=== PATIENT | female | born 1970 | race Caucasian/White ===

== ENCOUNTER 2025-10-07 08:51 | Outpatient (AMB) | payer MEDICARE, MEDICAID, SELFPAY ==
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
[2025-10-07 09:09] VITALS: BP 148/67; PULSE 59; RESP 20; TEMP 36.3; O2SAT 97; BMI 28.7
--- OUTSIDE RECORDS SUMMARY | 2025-10-07 09:37 | XMS_ITS | Continuity of Care Document ---
Author Name [facility], Medical Address [address] [place] [address] Organization Unknown Address [address] [place] [address] Medications No known medications Problems No known problems
--- OUTSIDE RECORDS SUMMARY | 2025-10-07 09:37 | XMS_ITS | Patient Health Record ---
Author Organization [facility] Address [address] [place] [address] Care Team Providers Care Comfort Filler Name Role Phone RK HARPER Unavailable [phone] Allergies Allergen (clinical drug ingredient) Drug/Non Drug Allergy documented on EMR Reaction Allergy Type Onset Date Status Penicillin rash Drug Allergy Active Reason For Referral No Information Medications Medication SIG (Take, Route, Fr equency, Duration) Notes Start Date End Date Status traZODone HCl 100 MG Oral; Duration: 30 Days Active FLUoxetine HCl 20 MG Oral; Duration: 30 Days Active Social History Tobacco Use: Social History Observation Description Date Details (start date - stop date) Current Smoker NA - NA Tobacco Use/Smoking Question Answer Notes Are you a current smoker How often do you smoke cigarettes? every day How many cigarettes a day do you smoke? 5 or les s Alcohol Screen (Audit-C) Question Answer Notes Did you have a drink containing alcohol in the p ast year? No Points 0 Interpretation Negative Plan Of Treatment Pending Test Test Name Order Date MM Digital Screening Mammogram 3D 2023 Insurance Providers Payer Name Payer Address Payer Phone Subscriber Number Group Number Insured Name Patient Relationship to Insured Coverage Start Date Coverage End Date [facility] [address] [place] [id number] MALCOLM WARE Self - patient is the insured Medical (General) History Medical History History ICD Code Major depressive disorder, recurrent sev ere without psychotic features F33.2 Other bursitis of hip, right hip M70.71 Essential (primary) hypertension I10 Surgical History Surgery Date(Month/Year) Hospitalization History Reason Date(Month/Year) Mental health (depression) hospital stay s x 4 (last time 2019) Childbirth
--- OUTSIDE RECORDS SUMMARY | 2025-10-07 09:38 | XMS_ITS | Continuity of Care Document ---
Author Name Domingo Montalvo Address [address] [place] [id number] Organization Unknown Address [address] [place] [address] Medications No known medications Problems No known problems
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
--- OUTSIDE RECORDS SUMMARY | 2025-10-07 09:39 | XMS_ITS | Clinical Summary ---
Author Organization [facility] [address] [facility] Address [address] [place] [address] Phone Care Team Providers Care Human Resources Receptionist Name Role Phone Physician, No Pcp Primary Care Provider Unavaila ble Allergies Active Allergy Reactions Criticality Noted Date Comments Penicillins Anaphylaxis High 10/15/2019 Medications hydroCHLOROthia zide (MICROZIDE) 12.5 mg capsule Take 12.5 mg by mouth daily. Active meloxicam (MOBIC) 7.5 mg tablet Take 7.5 mg by mouth daily. Active nicotine polacrilex (NICORETTE) 2 mg gum Take 1 Each by mouth as needed. Active FLUoxetine (PROzac) 20 mg capsule Take 40 mg by mouth daily. Active bisacodyL (Dulcolax, bisacodyl,) 5 mg EC tablet Take 4 dulcolax tablets 2 hours before the procedure. 10/13/2019 Active acetaminophen (TYLENOL) 500 mg tablet Take 1 tablet (500 mg total) by mouth every 6 (six) hours if needed for mild pain for up to 12 doses. 12 tablet 06/24/2025 Active Active Problems Problem Noted Date Diagnosed Date Prediabetes 01/26/2020 Hypertension 01/26/2020 Anxiety 01/26/2020 Depression 01/26/2020 Insomnia 01/26/2020 Osteoarthritis 01/26/2020 Overview (09/13/2024): Thoracic & Lumbar Spine Chronic low back pain 01/26/2020 Vitamin D insufficiency 01/26/2020 Encounters Date Type Department Care Team Description 07/23/2025 1:55 PM EDT - 07/23/2025 5:00 PM EDT Emergency [facility] Emergency [address] [place] [address] Eddie Meredith MD Anxiety (Primary Dx); Poorly-controlled hypertension Discharge Disposition: Home or Self Care from Last 3 Months Immunizations Immunization Administration Dates Next Due Influenza trivalent, with pr eservative (Fluzone; Afluria) 6mo and older 10/08/2019 Pneumococcal conjugate 13 va lent (Prevnar 13, PCV13) 2mo and older 08/22/2016 Pneumococcal polysaccharide 23 valent (Pneumovax 23) 2yo and older 09/15/2018 Tdap Tetanus diptheria acell ular pertussis (Boostrix; Adacel) 7yo and older 06/15/2018 Surgical History Surgery Date Site/Laterality Comments SECTION PROCEDURE: HISTORICAL Medical History Medical History Date Comments Prediabetes 01/26/2020 DX:Prediabetes Hypertension 01/26/2020 DX:Hypertension Anxiety 01/26/2020 DX:Anxiety Depression 01/26/2020 DX:Depression Insomnia 01/26/2020 DX:Insomnia Osteoarthritis 01/26/2020 DX:Osteoarthriti s; COMMENT: Thoracic & Lumbar Spine Chronic low back pain 01/26/2020 DX:Chronic low back pain Vitamin D insufficiency 01/26/2020 DX:Vitam in D insufficiency Family History Medical History Relation Name Comments Stomach cancer Father Breast cancer Maternal Grandmother Diabetes Mother Hypertension Relation Name Status Comments Father Alive Maternal Grandmother Mother Alive Social History Tobacco Use Types Packs/Day Years Used Date Smoking Tobacco: Light Smoker Cigarettes Smokeless Tobacco: Never Alcohol Use Standard Drinks/Week Comments No 0 (1 standard drink = 0.6 oz pur e alcohol) Comments Unknown Sex and Gender Information Value Date Recorded Sex Assigned at Not on file Legal Sex Female 12:49 AM EST Gender Identity Not on file Sexual Orientation Not on file Obstetrics History Last Filed Vital Signs Vital Sign Reading Time Taken Comments Blood Pressure 180/91 07/23/2025 2:06 PM EDT Pulse 66 07/23/2025 2:06 PM EDT Temperature 36.6 C (97.9 F) 07/23/2025 2:06 PM EDT Respiratory Rate 18 07/23/2025 2:06 PM EDT Oxygen Saturation 96% 07/23/2025 2:06 PM EDT Inhaled Oxygen Concentration - - Weight - - Height 167.6 cm (5' 6 ) 06/24/2025 12:57 PM EDT Body Mass Index - - Plan of Treatment Health Maintenance Due Date Last Done Comments Colorectal Cancer Screening: Colonoscopy 1970 Hepatitis B Vaccines (1 of 3 - 19+ 3-dose series) 1987 Cervical Cancer Screening: Pap Smear 1989 Zoster Vaccines (1 of 2) 2018 Breast Cancer Screening 07/05/2021 07/05/2019, 06/29 Pneumococcal Vaccine: 50+ Years (3 of 3 - PCV20 or PCV21) 09/15/2023 09/15/2018, 08/22/2016 HIV Screening 09/14/2024 Hepatitis C Screening 09/14/2024 Medicare Annual Wellness Visit 09/14/2024 Social Influencers of Health Screening 09/14/2024 Cholesterol Screening (Lipid Panel) 10/08/2024 10/08/2019 Depression Screening 12/01/2024 COVID-19 Vaccine ( season) 2025 09/24/2022, 04/28/2021, 04/07/2021 Influenza Vaccine (#1) 2025 , 09/10/2023, 09/24/2022, Additional history exists Hypertension/CHF/CAD Annual BMP Blood Test 06/24/2026 06/24/2025 DTaP,Tdap,and Td Vaccines (2 - Td or Tdap) 06/15/2028 06/15/2018 RSV Immunization Adult Patients (1 - 1-dose 75+ series) 2043 HIB Vaccines Aged Out No longer eligi ble based on patient's age to complete this topic HPV Vaccines Aged Out No longer eligi ble based on patient's age to complete this topic Hepatitis A Vaccines Aged Out No long er eligible based on patient's age to complete this topic IPV Vaccines Aged Out No longer eligi ble based on patient's age to complete this topic MMR Vaccines Aged Out No longer eligi ble based on patient's age to complete this topic Meningococcal ACWY Vaccine Aged Out N o longer eligible based on patient's age to complete this topic Meningococcal B Vaccine Aged Out No l onger eligible based on patient's age to complete this topic RSV Immunization Patients Under 20 months Aged Out No longer eligible based on patient's age to complete this topic Varicella Vaccines Aged Out No longer eligible based on patient's age to complete this topic Procedures Procedure Name Priority Date/Time Associated Diagnosis Comments BASIC METABOLIC PANEL STAT 06/24/2025 11:58 AM EDT ANGELITA SCREENING DIGITAL Routine 07/05/2019 5:48 PM EDT Encounter for screening mammogram for malignant neoplasm of breast from Last 3 Months or Most Recently Relevant to Health Maintenance Results * (ABNORMAL) Basic metabolic panel (06/24/2025 11:58 AM EDT) Sodium 140 133 - 145 mmol/L LAB CHEMISTRY METHOD 06/24/2025 1:26 PM [facility] Potassium 4.0 3.5 - 5.5 mmol/L LAB CHEMISTRY METHOD 06/24/2025 1:26 PM [facility] Chloride 111(H) 96 - 110 mmol/L LAB CHEMISTRY METHOD 06/24/2025 1:26 PM [facility] CO2 25 21 - 32 mmol/L LAB CHEMISTRY METHOD 06/24/2025 1:26 PM [facility] Anion Gap 4 3 - 11 LAB CHEMISTRY METHOD 06/24/2025 1:26 PM [facility] Glucose 95 70 - 100 mg/dL LAB CHEMISTRY METHOD 06/24/2025 1:26 PM [facility] BUN 17 5 - 25 mg/dL LAB CHEMISTRY METHOD 06/24/2025 1:26 PM [facility] Creatinine 0.69 0.50 - 1.10 mg/dL LAB CHEMISTRY METHOD 06/24/2025 1:26 PM [facility] eGFR 102 >=60 mL/min/1. 73m2 LAB CHEMISTRY METHOD 06/24/2025 1:26 PM [facility] Comment:Calculation based on the Chronic Kidney Disease Epidemiology Collaboration (CKD-EPI) equation refit without adjustment for race. BUN/Creatinine Ratio 24.6 LAB CHEMISTRY METHOD 06/24/2025 1:26 PM EDT [facility] Calcium 9.4 8.5 - 10.5 mg/dL LAB CHEMISTRY METHOD 06/24/2025 1:26 PM EDT [facility] Blood Venous blood specimen / Unknown Venipuncture / Unknown 06/24/2025 11:58 AM EDT 06/24/2025 12:32 PM EDT us Orlando Huerta MD LAB BLOOD ORDERABLES Final Result [facility] [address] [place] [address], * ANGELITA SCREENING DIGITAL (07/05/2019 5:48 PM EDT) Anatomical Region Laterality Modality Mammography 07/05/2019 1:05 PM EDT Narrative 07/05/2019 5:[address] [facility] Diagnostic Imaging Department [address] [place] [address] Patient: KELIN WARE./Age/Sex: 1970 - 48 - F Unit#: [id number] Location/Status: SPDIMAM/REG CLI Mnemonic/Ordering Site: [facility] Ordering Physician: KEYON CARTER MD Angelita Screening Digital - 07/05/19 - 1327 History: Bilateral breast cancer screening. Technique: Digital mammography. Conventional CC and MLO projections with tomosynthesis MLO views and computer aided detection. Comparison made with previous mammograms from [facility] and outside mammography 06/29/2018 dating back to 01/03/2009. Findings: Breast tissue consists of a heterogenous combination of fatty and fibroglandular tissue, potentially obscuring small lesions, category c density. There are benign calcifications and stable tissue asymmetries bilaterally. No suspicious group of microcalcification, suspicious mass, concerning focal asymmetry, architectural distortion or concerning change in breast density affecting either breast. Impression: No evidence of malignancy. BIRADS category 2; benign findings, 3342F 76151, 35204 A negative mammogram in the face of a clinically suspicious abnormality does not exclude the possibility of malignancy nor alter the indications for biopsy. Note: Patient information entered into a reminder system with a target due date for the next mammogram; PQRI II 7093F Dictating Physician: LD BENNETT MD Electronically Signed by: LD BENNETT MD Dic Date/Time: 07/05/191746 Sign date/Time: 07/05/191747 Procedure Note Ld Bennett - 11/20/2022 [facility] Diagnostic Imaging Department [address] [place] [address] Patient: WAREKELIN CATES Dasha /Age/Sex: 1970 - 48 - F Unit#: [id number] [facility] Mn[facility]onic/Ordering Site: [facility] Ordering Physician: KEYON CARTER MD Angelita Screening Digital - 07/05/19 - 1327 History: Bilateral breast cancer screening. Technique: Digital mammography. Conventional CC and MLO projections with tomosynthesis MLO views and computer aided detection. [facility] [place] [facility] dating back to 01/03/2009. Findings: Breast tissue consists of a heterogenous combination of fattyand fibroglandular tissue, potentially obscuring small lesions, category cdensity. There are benign calcifications and stable tissue asymmetries bilaterally.No suspicious group of microcalcification, suspicious mass, concerningfocal asymmetry, architectural distortion or concerning change in breastdensity affecting either breast. Impression: No evidence of malignancy. BIRADS category 2; benign findings, 3342F 11228, 76591 A negative mammogram in the face of a clinically suspicious abnormalitydoes not exclude the possibility of malignancy nor alter the indications forbiopsy. Note: Patient information entered into a reminder system with a targetdue date for the next mammogram; PQRI II 7025F Dictating Physician: LD BENNETT MD Electronically Signed by: LD BENNETT MD Dic Date/Time: 07/05/191746 Sign date/Time: 07/05/191747 Keyon Carter MD IMG BI PROCEDURES Final Resul t from Last 3 Months or Most Recently Relevant to Health Maintenance Insurance [facility] MEDIC[facility] Member Subscriber Plan / Payer (Ef fective 2022-Present) Name:KELIN WARE Relation to Subscriber:Self Name:Kelin Ware Payer ID:[id number] Group ID:[id number] Type:Not on file Address: [place] [address] [address] [address] Care Teams Human Resources Receptionist Relationship Specialty Start Date End Date Physician, No Pcp PCP - General 06/24/25
--- OUTSIDE RECORDS SUMMARY | 2025-10-07 09:39 | XMS_ITS | Continuity of Care Document ---
Author Name [facility], Medical Address [address] [place] [address] Organization Unknown Address [address] [place] [address] Medications No known medications Problems No known problems
--- OUTSIDE RECORDS SUMMARY | 2025-10-07 09:39 | XMS_ITS | Encounter Summary ---
Author Organization [facility] Address [address] [place] [address] Encounters * CPT with Medical [facility] at [facility] on 2025-08-20 { reasonForRequest : Patient has an infection on the bottom of her Vagina, and has high blood pressure. , patientReports : Painful urination , denies&quot ;:[ Unable to void greater than 5 hours , Erection that will not go away after 2 hours , Fall or trauma that results in urinary incontinence in the setting of pain ,"Fall or injury that results in incontinence in the absence of pain , Lower back pain either unilateral or bilateral, unable to void, painful urination -hematuria ], chiefComplaints : High Blood Pressure, Headache, Urinary Symptoms , pmh : Hypertension, Depression , allergies : Penicillins , otherAllergies :null,& quot;painAssessment : , visitOutcome : , additionalComments : Member's son is calling saying she is complaining of a possible vaginal infection andfeels like her blood pressure is high. Recently in the hospital for the same reason. Increased redness and burning in her cyndy area. Member unsure if she has had a UTI before. Believes she has a yeast infection. Denies shortness of breath and chest pain. Currently does not take blood pressure medication. \n\n54 y.o female complains of High Blood Pressure, Headache\nI provided information on the mobile health provider response time and advised the patient and/or caregiver to monitor reported signs and symptoms. I discussed the warning signs of when to seek emergency care. Jacy Faria RN } Dispatched to the above address for a 54 y/f with Vaginal issues. Proper ppe was worn throughout the call. Upon arrival: Pt AOx4 in a fowlers position in the living room sofa. Pt greeted [facility] and gave a verbal report. Pt stated that about 2 weeks ago she was seen at [facility] for a cc of vaginal itchiness/constant burning sensation/white discharge. Pt stated that she thinks she was diagnosed with Yeast infection, and was sent home on antibiotics (cephalexin). Pt stated that she believes she threw the discharge paperwork away, but was sure that she was diagnosed with yeast infection (known hx). Pt stated that initially the symptoms got better, but after a couple of days everything got worse. [facility] noted that the antibiotics that pt was supposed to finish at least a week ago was mostly full (12 pills). Pt stated that she is forgetful at baseline and would forget to take antibiotics. To pt complaintspt added that she has a hx of hypertension, and for the past year has been off of her BP medications due to not having a PCP. AOx4 - Airway: Patent - Breathing: equal chest rise and fall - LS: clear - Skin: pink, warm, dry - Pupils: PERRL - CMSx4 - Lower extremity: no edema . ABD: soft, non tender, no discoloration - Back: (-) crepitus/ CVA tenderness. Pt denied to sob/headaches/chest pain/abd pain/blood in urine/difficulty urinating/fever/diarrhea/constipation/falls/. HEENT. skin in tact with no deformity. Pupils were equal and reactive to light bilaterally. Eyes tracking normally to six cardinal points of gaze. Nose and mouth were unobstructed. Trachea midline, jugular veins were nondistended in seated position. Face symmetrical with equal movement and sensation. Patient denied changes to vision or hearing and denied double vision. Tongue and uvula midline with palate raises symmetrically. No arm drift present, finger - nose test normal, no neglect noted. [facility]ave orders for Uranalysis/urine send out. done successfully. [facility] gave pt education on finishing Antibiotics, and gave a new prescription for yeast infection (pt stated that she will pickup med). Red flags given. Prior to [facility] leave pt family found discharge paperwork, and PT was diagnosed withUTI. Family stated that they will help the pt with her medications this time. MIH clear. All times approximate. IV_(FLUIDS_AND/OR_MEDICATION), MEDICATION_IM, ORAL_MEDICATION, EKG, POC_BLOODWORK, POC_FLU_STREP, GLUCOSE, COVID_TEST, ORTHOSTATIC_VITAL_SIGNS Written by Medical [facility] on 2025-08-20
--- OUTSIDE RECORDS SUMMARY | 2025-10-07 09:40 | XMS_ITS | Encounter Summary ---
Author Organization [facility] Address [address] [place] [address] Encounters * CPT with Domingo Montalvo at [facility] on 2025-06-20 { reasonForRequest : rash , patientReports : Rash , denies :[ Buck Flash, circumferential buck , Buck reported with black tissue to the area , Open skin area after a fall with uncontrolled bleeding , Abscess/ infection with streaking noted, presence of fever or without , History of cellulitis, isolated redness noted , Fever and chills noted in setting of wound , Bites -bugs, spider , Abscess ], chiefComplaints : Rash , pmh : Hypertension, Depression , allergies : Penicillins , otherAllergies&qu ot;:null, painAssessment : , visitOutcome : , additionalComments : 54 y.o female complains of Rash\nsymptoms started a week ago\nred raised rash under left breast denies any fever chills\ndenies any open or draining areas\nbelieves its from the heat an humidity\ndenies any kidney issues\nnot on any blood thinners \[facility]n\nI provided information on the mobile health provider response time and advised the patient and/or caregiver to monitor reported signs and symptoms. I discussed the warning signs of when to seek emergency care. } Pt chief complaint today of a rash that has been developing order her left breast. Pt state that the rash comes back once a year during the summer due to moisture that she collects under her skin fold. Pt state that this her however she does feel an 8/10 level of pain in the area. Pt also notes shehas been using. An anti-fungal cream as well as nystatin powder from 1 year prior to assist with the situation with very minimal positive effect. Pt also is having a headache without vision changes. Pt today would appreciate a general assessment of her condition as well as treatment if possible. Ptdenies any current cp, sob, NVD, dizziness or blurred vision. Nonnneural focal exam, upon arrival pt is noted to be able to ambulate at baseline without use of awalker or person. Afebrile, vitals noted hypertension.lungs present as clear bilaterally on auscultation. Benign abdominal assessment. No new or worsening lower extremity edema noted. Upon inspectionof the requested are a large 6 inch red rash is visualize. Not hot to touch but very tender. Area does not appear to have any discharge or open sores. Pt is noted to be CAOX4 with a GCS of 15 currently. [facility] Ranjit monaco consulted. Pt is informed of findings. Pt is sent a prescription for topical antifungal as well as steroid to her local pharmacy . Pt is informed to call as needed for assistance as well as to make an appointment with her pcp as needed. Pt is educated on red flag S&S and told to call emergency services ifany present. PO_MEDICATION Written by Domingo Montalvo on 2025-06-20
--- OUTSIDE RECORDS SUMMARY | 2025-10-07 09:40 | XMS_ITS | Encounter Summary ---
Author Organization On [facility] Of [facility] Address [address] [place] [address] Encounters * CPT with Medical [facility] at [employer] on 2025-07-25 Call transferred to CRU from Ghulam KINCAID. Mbr reports she went to the ER on Friday (07/23) for syncope and per mbr my blood pressure was 280 while in the ED. Mbr states she was given medication for her BP and d/c to home without script. Mbr does not have a current PCP, states she is trying to get in but wait times are 2-3 months. Mbr denies current s/sx including CP, SOB, dizziness, nu mbness/tingling, blurry vision. Mbr does not have a BP monitor or way to check BP. Mbr states she is currently at therapist appt. Mbr reported to MSR she is scared of passing out again. Mbr denies dizziness/lightheadedness at time of call. Mbr was offered instED for evaluation today. Mbr in agreement. Mbr request CCA assistance, states no one is helping her, requested BP monitor, BP medications, and pull-ups. Mbr was encouraged to call PCP offices and take soonest offered new patient appt, evenif months away. This underwriter solicitation director stressed the importance of mbr establishing care w/ a PCP. Mbr was advised msg would be sent to CP for follow-up. Mbr was advised an instED referral would be submitted and for new/worsening sx prior to visit, to call 911/go to the ER. { reasonForRequest : , patientReports : , denies&quot ;:[], chiefComplaints : High Blood Pressure , pmh : Hypertension, Depression , allergies : Penicillins , otherAllergies :null,&quo t;painAssessment : , visitOutcome : , additionalComments": HPI reviewed } GEN: Well appearing, in no distress or discomfort, alert and cooperative. HEENT: No abnormalities noted CV: RRR LUNGS: Clear equal Bilaterally ABD: Soft, NT/ND, no masses. : N/A SKIN: Warm, well perfused. No skin rashes or abnormal lesions reported. MSK: No deformities. EXT: No clubbing, cyanosis, edema NEURO: No focal deficits. C/o uncontrolled Blood pressure for <10 years, pt without PCP for <5. Pt notes symptoms that sent her to the ED to be evaluated including lightheadedness and systolic of 280. Pt was advised to secure a pcp for further detention care. Pt without complaints at time of visit, vitals unremarkablefor emergent intervention. C contacted and no further interventions required at time of visit. Pteducated to track BPs and secure a pcp appointment even if it is months away and was advised when to seek urgent/emergent care for new or worsening sxs. IV_(FLUIDS_AND/OR_MEDICATION), MEDICATION_IM, ORAL_MEDICATION, EKG, ORTHOSTATIC_VITAL_SIGNS Written by Medical inst[facility] on 2025-07-25
== END 2025-10-07 09:45 | disposition home or self-care (01) ==
LOC: HO.HMCFMS 08:52
PROVIDERS: PCP Student in an Organized Health Care Education/Training Program; Visit Provider Student in an Organized Health Care Education/Training Program
DX: R32 Unspecified urinary incontinence (principal); M79.604 Pain in right leg; G89.29 Other chronic pain; R26.81 Unsteadiness on feet; F32.A Depression, unspecified; F41.9 Anxiety disorder, unspecified; G47.00 Insomnia, unspecified

== ENCOUNTER 2025-10-07 08:51 | Outpatient (REF) | payer OTHER, SELFPAY ==
--- OUTSIDE RECORDS SUMMARY | 2025-10-07 11:20 | XMS_ITS | Data Portability ---
Author Organization [facility], [facility] Address [address] [place] [address] Care Team Providers Care Health Care Coordinator Name Role Phone HIM CCA OTHER Assessment Encounter Date Assessment Date Assessment LastModified by Organization Details LastModified Time 05/16/2024 05/16/2024 I provided real -time medical direction via phone for this encounter and was available for additional phone-based assistance as needed. I have reviewed and agree with the Assessment and Plan as documented by the Feed Manager. Patient given the opportunity to ask questions. Our service contacted for an assessment of: rash As per above, patient with rash under breasts that has been worsening over the course of a week. Is painful. Has ot put anything on it. Per event designer on the scene, VSS, see uploaded pictures. Impression: Candidal intertrigo Plan: Ketoconazole cream We discussed the diagnostic uncertainty of home visits and the risk associated with this. In this case, the patient and I felt this to be an acceptable and reasonable amount of risk given the benefit of avoiding an ED visit. We discussed the need to seek care urgently/emergentl y in the setting of any new or worsening serious symptoms, particularly fever chills lightheadedness altered mental status [facility] Not available 05/17/2024 07:19:35 06/20/2025 06/20/2025 Findings appear consistent with intertrigo. Low clinical suspicon for cellulitis or sepsis. Will initiate treatment with topical clotrimazole and betamethasone and hygiene precautions. Patient also noted to have hypertension with no reported history. Reports she does not currently see a PCP. Will send message to see if appropriate outpatient follow-up can be arranged. She otherwise appers safe and is satisfied with staying home. I provided real -time medical direction via phone for this encounter, and was available for additional phone based assistance as needed. I have reviewed and agree with the Assessment and Plan as documented by the Feed Manager. We discussed the diagnostic uncertainty of home visits and the risk associated with this. In this case the patient and I felt this to be an acceptable and reasonable amount of risk given the benefit of avoiding an ED visit. The patient given the opportunity to ask questions. Advised if develops CP/severe SOB/turning blue/uncontrolled n/v/d or black/bloody emesis or stool/ AMS/ syncope/ hi fever unresponsive to APAP to call 911- verbalized understanding of instruction [email or web address] Not available 06/20/2025 17:34:48 08/20/2025 08/20/2025 I have reviewed and agree with the assessment and plan as documented by the event designer. I provided real-time medical direction for this encounter and was immediately available to provide additional phone-based assistance as needed. HPI: 54F presenting with vaginal irritation, dysuria, burning x 2 weeks. Pt was seen in ED 2 weeks ago and was diagnosed with 'yeast infection' and started on cephalexin qid. She has not been taking her medications as prescribed and complains of persistent symptoms. No fever. Also complains of whitish discharge. U/A with + leuks, - nitrites. No blood. Suspect yeast infection +/- UTI. Recommend pt continue with abx and to take it regularly. Will also prescribe diflucan. Allergy to penicillin. We discussed the diagnostic uncertainty of home visits and the risk associated with this. In this case, the patient and I felt this to be an acceptable and reasonable amount of risk given the benefit of avoiding an ED visit. We discussed the need to seek care urgently/emergentl y in the setting of any new or worsening serious symptoms, particularly weakness, dizziness, fever, chills, CP, SOB, worsening diarrhea, nausea, vomiting or any other concerns. [email or web address] Not available 08/20/2025 15:13:51 Plan of Treatment Reminders Order Date Submit Date Provider Last Modified By Organization Details Last Modified Time Details Appointments None recorded. Lab culture, urine 2024 025 RAL[facility] (Centralized Electronic Ordering - All Locations), Patient Can Go To The Location Of Their Choice, [id number] 06:05:42 urinalysis, dipstick 2024 025 [facility], [address] [place] [address], [id number] 5 21:27:48 Referral None recorded. Procedures None recorded. Surgeries None recorded. Imaging None recorded. Medication Orders Diflucan 150 mg tablet 2024 025 [facility] #[id number], [address], [place], [id number], 5 15:14:05 clotrimazol e-betametha sone 1 %-0.05 % topical cream 2024 025 [facility] #03041, [address], [place], [id number], 5 17:33:34 nystatin 100,000 unit/gram topical powder 2023 024 [facility] #92057, [address], [place], [id number], 4 15:35:51 ketoconazol e 2 % topical cream 2023 024 [facility] #09293, [address], [place], [id number], 4 15:35:56 ketoconazol e 2 % topical cream 2023 024 [facility] #13206, [address], [place], [id number], 4 07:18:04 Patient TargetsNo targets recorded. Patient InstructionsNo instructions recorded. Reason for Referral None Reported. Results Created Date Observation Date Name Description Value Unit Range Abnormal Flag Note LastModifiedBy Organization Detail LastModifiedTime 08/20/2008/22/2025 URINE CULTU RE, UROLO GY DEBRA P urine culture, urology workup Final report abnormal Not Available [facility] ([facility]) [address] [facility], [place], [address], 08/22/2025 20:05:53 08/20/20 25 08/22/2025 URINE CULTU RE, UROLO GY DEBRA P result 1 Escher ichia coli abnormal Cefaz kait with an MAC <=16 predi cts susce ptibi lity to the oral agent s cefac fariha, cefdi jay, cefpo doxim e, cefpr ozil, cefur oxime , cepha lexin , and lorac arbef when used for thera py of uncom plica jassi urina ry tract infec tions due to E. coli, Klebs iella pneum oniae , and Prote us mirab ilis. Multi -Drug Resis tant Organ ism Great er than 100,0 00 colon y formi ng units per mL Not Available [facility] ([facility]) [address] [facility], [place], [address], 08/22/2025 20:05:53 08/20/20 25 08/22/2025 URINE CULTU RE, UROLO GY DEBRA P antimicrobia l susceptibili ty Commen t S = Susce ptibl e; I = Inter media te; R = Resis tant P = Posit roberto; N = Negat roberto MICS are expre ssed in micro grams per mL Antib iotic RSLT# 1 RSLT# 2 RSLT# 3 RSLT# 4 Amoxi cilli n/Cla vulan ic Acid S Ampic illin R Cefaz kait S Cefep jacky S Cefox itin S Cefpo doxim e S Ceftr iaxon e S Cipro floxa carlos enrique S Ertap enem S Genta micin S Levof loxac in S Merop enem S Nitro furan toin I Piper acill in/Ta zobac aparicio S Tetra cycli ne S Tobra mycin S Trime thopr im/Sterling lfa R Not Available [facility] ([facility]) [address] [facility], [place], [address], 08/22/2025 20:05:53 Result Notes None recorded. Medical Equipment None Reported. Allergies Allergen ID Allergen Name Allergen Category Reaction Reaction Severity Criticality Documentation Date Start Date Code Code System Note Provider Name and Address Organization Details Recorded Time 4120 Product containin g penicilli n (product) medicatio n Not available Not available Not available 06/17/2024 77468 8001 SNOMED Not Available [employer] 4 03:47:46 Medications Name Sig Start Date Stop Date Status Note LastModified by Organization Details LastModified Time fluconazole 150 mg tablet TAKE 1 TABLET BY MOUTH EVERY DAY active Not Available Not Available No t Available Nystop 100,000 unit/gram topical powder APPLY TO THE AFFECTED AREA TOPICALLY TWICE DAILY active Not Available Not Available Not Available acetaminophe n 500 mg tablet TAKE 1 TABLET BY MOUTH EVERY 6 HOURS IF NEEDED MILD PAIN FOR UP TO 12 DOSES. active Not Available Not Available No t Available trazodone 100 mg tablet active Not Available Not Available Not Available cephalexin 500 mg capsule TAKE ONE CAPSULE BY MOUTH FOUR TIMES DAILY FOR 5 DAYS active Not Available Not Available N ot Available clotrimazole -betamethaso ne 1 %-0.05 % topical cream APPLY TOPICALLY TO THE AFFECTED AND SURROUNDING AREAS TWICE DAILY IN THE MORNING AND IN THE EVENING FOR 2 WEEKS active Not Available Not Available No t Available ketoconazole 2 % topical cream APPLY TOPICALLY TO THE AFFECTED AREA DAILY active Not Available Not Available N ot Available fluoxetine 20 mg capsule active Not Available Not Available Not Available Vitals Date Recorded Body temperature Respiratory rate Oxygen saturation Oxygen saturation in Arterial blood by Pulse oximetry Heart rate Systolic And Diastolic Provider Name and Address Organization Details Last Updated DateTime 4 98.4 [degF] 16 /min 94 % 94 % 65 /min 109/66 mm[Hg] Not Available [employer] 4 07:16:18 Date Recorded Oxygen saturation Oxygen saturation in Arterial blood by Pulse oximetry Heart rate Respiratory rate Body temperature Body weight Systolic And Diastolic Provider Name and Address Organization Details Last Updated DateTime 4 97 % 97 % 64 /min 16 /min 97.6 [degF] 08284.9 2 g 110/56 mm[Hg] Not Available [employer] 4 15:33:40 Date Recorded Oxygen saturation Oxygen saturation in Arterial blood by Pulse oximetry Body height Respiratory rate Heart rate Body temperature Body weight Systolic And Diastolic Provider Name and Address Organization Details Last Updated DateTime 5 98 % 98 % 167.64 cm 20 /min 59 /min 98.3 [degF] 73498.6 8 g 183/79 mm[Hg] Not Available [employer] [facility] [employer] 17:29:05 Date Recorded Heart rate Respiratory rate Body temperature Oxygen saturation Oxygen saturation in Arterial blood by Pulse oximetry Systolic And Diastolic Provider Name and Address Organization Details Last Updated DateTime 72 /min 16 /min 98.2 [degF] 98 % 98 % 144/88 mm[Hg] Not Available [employer] 18:04:16 Date Recorded Oxygen saturation Oxygen saturation in Arterial blood by Pulse oximetry Body height Respiratory rate Heart rate Body temperature Body weight Systolic And Diastolic Provider Name and Address Organization Details Last Updated DateTime 98 % 98 % 172.72 cm 17 /min 64 /min 98.1 [degF] 44587.8 4 g 140/72 mm[Hg] Not Available [employer] [facility] [employer] 15:09:57 Social History None recorded. Functional Status None recorded. Mental Status None recorded. Family History Nothing Reported. Medical History No medical history recorded. Gynecological HistoryNo gynecological history recorded. Obstetrics History GPAL:G 0 P 0 0 0 0 Past Encounters Encounter ID Performer Location Encounter Start Date Encounter Closed Date Diagnosis/Indication Diagnosis SNOMED-CT Code Diagnosis ICD10 Code Diagnosis IMO Codes Diagnosis Note [id number] Gabriela Elizabeth MD Main - [address] [address] 05/17/2024 07:16:06 05/17/2024 11:45:33 Candidal intertrigo [id number] B37.2 [id number] ARLENE [facility]ENDOZA [facility] [address] [place] [phone] 06/17/2024 15:33:28 06/18/2024 10:16:48 Candidal intertrigo 705075520 B37.2 As noted, we were called to see this patient regarding concerns of rash. Evaluation in the field was performed by my event designer colleague, as noted above, I provided real-time direction and supervisio n for this visit. The evaluation revealed 53 yo female with complains of pruritic rash under both breasts. She was seen by out service 1 month ago and Ketoconazo le was prescribed . pt reports that it did help but she ran out of it. It is hard for her to keep the area dry. Denies fever, chills, CP, SOB, nausea, vomiting, increased thirst, increased urinationT olerating PO well. VSSExam unremarkab le other then rash under both breast consistent with dary intertrigo . Allergies: Penicillin s. Impression :Dary intertrigo Plan:-Pt advised to use ketoconazo le and then add nystatin powder to keep the area dry-Advise d to wear cotton undergarme nt-Red flags discussed with the patient . If ongoing symptoms, may benefit from glucose check with PCP Primary care, consider__ _ Dispositio n: We discussed the diagnostic uncertaint y of home visits and the risk associated with this. In this case, the patient and I felt this to be an acceptable and reasonable amount of risk given the benefit of avoiding an ED visit. We discussed the need to seek care urgently/e mergently in the setting of any new or worsening serious symptoms, particular ly fever, chills, worsening rash, increased thirst, increased urination or any other concerns. [id number] RANJIT HEALY MD [facility] [address] [address] 06/20/2025 17:28:50 06/20/2025 21:52:33 Intertrigo [id number] L30.4 [id number] Connie Ott MD [facility] [address] [phone] 07/25/2025 18:04:12 07/26/2025 10:21:56 Essential hypertension [id number] I10 [id number] 54 year old female being evaluated for history of elevated BP readings without a diagnosis of HTN. Patient reports recent hospital visit after an episode of syncope, where she was noted to have severe range BP, and was managed with medication s in hospital without being prescribed anything long-term. Patient not previously known for HTN, and reports no symptoms currently, but worries her BP remains elevated and she will have another episode of syncope. Exam notable for BP 144/88, with otherwise normal vital signs. Presentati on consistent with untreated HTN, currently without hypertensi ve emergency or urgency, would benefit from PCP FU for initiation of antihypert ensive treatment. I have reviewed and agree with the assessment and plan as documented by the event designer. I provided real-time medical direction for this encounter and was immediatel y available to provide additional phone-base d assistance as needed. We discussed the diagnostic uncertaint y of home visits and associated risks. We discussed the need to seek care urgently/e mergently in the setting of any new or worsening symptoms. [id number] Imelda Tejeda MD [facility] ED Medical [facility] [address] [place] [address] 08/20/2025 15:09:54 08/22/2025 23:38:43 Dysuria [id number] R30.0 02503 Health Concerns Section Related Observation LastModified by Organization Detai ls LastModified Time None Recorded Concern Status LastModified by Organization Details LastModified Time None Recorded Advance Directives Directive None Recorded Payers Insurance Date Sequence Insurance Name Policy Number Policy Fontana Covered Member ID Fontana Member ID Guarantor Name 08/20/2025 1 [facility] - DOS ON OR AFTER 2023 - DUAL ELIGIBLE - USP OPTIONS AND ONE CARE (MEDICARE REPLACEMENT/ADV ANTAGE - HMO) Kelin Plasencia [id number] Kelin Plasencia Notes Date Note Type Note Provider Name and Address Organization Details Recorded Time 05/16/2024 text/html CRC Nurse Triage Notes (Ingrid Patel): Reason For Request: Patient has a possible rash under her breast area. Red dots Painful. Chief Complaints: Rash PMH: Hypertension Allergies: Penicillin Comments: Members son calling in to place a referral, member identified via name and . Member with rash under her breast for 5 days. Per son rash is red, painful and itchy. He is unsure how to describe it when asked about size, such as pimple or patchy, sounds like it may be excoriated like a heat rash/friction. He denies any filminess or foul odor, thinks there may be slight discharge. Member would like and agreeable to a visit. ..................... ..................... ..................... ..................... ..................... ..................... ............... Feed Manager Note From Roman Romero: [id number] dispatched to a [facility] yellow in [place] for a 53yoF w c/c of rash under breasts. O/A at residence, I find pt sitting in living room w family present. Pt is AOx4, calm, in no apparent distress, speaking full sentences. Pt skin PWD, strong regular radial pulse as noted. RR 16, unlabored. Remaining VS as noted. Pt states she has had one week of worsening rash underneath breasts w associated burning and itching. Area is photographed. Assessment findings shared w [facility] and care plan discussed. Prescriptions for several topical medications called into local pharmacy.Supportive care measures and red flag symptoms reviewed. End of report. - Feed Manager Allergies: Penicillin ..................... ..................... ..................... ..................... ..................... ..................... ............... Disposition: Fulfilled Gabriela Elizabeth MD [address] [place] [address],[address], [place], [address], [employer] 05/17/2024 07:19:52 06/17/2024 text/html ROS as noted in the [facility] CRC Nurse Triage Notes (Charlee Bro): Reason For Request: Rash under both breast Chief Complaints: Rash PMH: Hypertension Allergies: Penicillin Comments: Patient reports rash under both breasts. Patient was using a cream at [facility] that she doesn't remember the name of. Cream was helping in the past. Patient states rash is recurrent with the humidity. ..................... ..................... ..................... ..................... ..................... ..................... ............... Feed Manager Note From Srinivas Watts: Pt co rash under breasts. Pt has had before and cream she was given worked well. Pt denies fever , contact with poisonous plants , or insects. Denies NVD , edema. Baseline vitals assessed. Photos uploaded. Afebrile. [facility] contacted and RX for antibiotic cream, and nystatin powder. Pt instructed how to apply , pt advised to follow up with pcp. Pt education on signs indicating the ER. Feed Manager Allergies: Penicillin ..................... ..................... ..................... ..................... ..................... ..................... ............... Disposition: Fulfilled ARLENE MENDOZA MD [address] [facility],[address], [place], [address], [employer]CCA ORDONEZ 06/17/2024 19:06:08 06/20/2025 text/html ROS as noted in the HPI CRC Nurse Triage Notes (Elaine Joseph): Reason For Request: rash Patient Reports: Rash Denies: Buck Flash, circumferential buck Buck reported with black tissue to the area Open skin area after a fall with uncontrolled bleeding Abscess/infection with streaking noted, presence of fever or without History of cellulitis, isolated redness noted Fever and chills noted in setting of wound Bites -bugs, spider Abscess Chief Complaints: Rash PMH: Hypertension, Depression PMH Reviewed at 06/20/2025: Allergies Reviewed at 06/20/2025:29 Comments: 54 y.o female complains of Rash symptoms started a week ago red raised rash under left breast denies any fever chills denies any open or draining areas believes its from the heat an humidity denies any kidney issues not on any blood thinners would like an insted visit. I provided information on the mobile health provider response time and advised the patient and/or caregiver to monitor reported signs and symptoms. I discussed the warning signs of when to seek emergency care. ..................... ..................... ..................... ..................... ..................... ..................... ............... Feed Manager Note From Xander Reyes: Pt chief complaint today of a rash that has been developing order her left breast. Pt state that the rash comes back once a year during the summer due to moisture that she collects under her skin fold. Pt state that this her however she does feel an 8/10 level of pain in the area. Pt also notes she has been using. An anti-fungal cream as well as nystatin powder from 1 year prior to assist with the situation with very minimal positive effect. Pt also is having a headache without vision changes. Pt today would appreciate a general assessment of her condition as well as treatment if possible. Pt denies any current cp, sob, NVD, dizziness or blurred vision. Nonnneural focal exam, upon arrival pt is noted to be able to ambulate at baseline without use of a walker or person. Afebrile, vitals noted hypertension.lungs present as clear bilaterally on auscultation. Benign abdominal assessment. No new or worsening lower extremity edema noted. Upon inspection of the requested are a large 6 inch red rash is visualize. Not hot to touch but very tender. Area does not appear to have any discharge or open sores. Pt is noted to be CAOX4 with a GCS of 15 currently. [facility] Ranjit healy consulted. Pt is informed of findings. Pt is sent a prescription for topical antifungal as well as steroid to her local pharmacy . Pt is informed to call as needed for assistance as well as to make an appointment with her pcp as needed. Pt is educated on red flag S&S and told to call emergency services if any present. ..................... ..................... ..................... ..................... ..................... ..................... ............... [facility] Consulted: Ranjit Healy ..................... ..................... ..................... ..................... ..................... ..................... ............... Disposition: Francisca HEALY MD [address] [facility],[address], [place], [address], REBECCA JEFFREY 06/20/2025 21:32:16 07/25/2025 text/html HPI: Call transferred to [facility] from Ghulam KINCAID. Mbr reports she went [...] denies current s/sx including CP, SOB, dizziness, numbness/tingling, blurry vision. Mbr does not have a BP monitor or way to check BP. Mbr states she is currently at therapist appt. Mbr reported to MSR she is scared of passing out again. Mbr denies dizziness/lightheaded ness at time of call. Mbr was offered instED for evaluation today. Mbr in agreement. Mbr request CCA assistance, states no one is helping her, requested BP monitor, BP medications, and pull-ups. Mbr was encouraged to call PCP offices and take soonest offered new patient appt, even if months away. This casualty underwriter stressed the importance of mbr establishing care w/ a PCP. Mbr was advised msg would be sent to CP for follow-up. Mbr was advised an instED referral would be submitted and for new/worsening sx prior to visit, to call 911/go to the ER. ..................... ..................... ..................... ..................... ..................... ..................... ............... CRC Nurse Triage Notes (Charlee Bro): Chief Complaints: High Blood Pressure PMH: Hypertension, Depression PMH Reviewed at 07/25/2025 - 14:06 Allergies Reviewed at 07/25/2025 - 14:06 Comments: HPI reviewed ..................... ..................... ..................... ..................... ..................... ..................... ............... Feed Manager Note From Carmine Willett: GEN: Well appearing, in no distress or [...] advised to secure a pcp for further fci care. Pt without complaints at time of visit, vitals unremarkable for emergent intervention. [facility] contacted and no further interventions required at time of visit. Pt educated to track BPs and secure a pcp appointment even if it is months away and was advised when to seek urgent/emergent care for new or worsening sxs. ..................... ..................... ..................... ..................... ..................... ..................... ............... [facility] Consulted: Connie Ott ..................... ..................... ..................... ..................... ..................... ..................... ............... Disposition: Fulfilled Connie Ott MD [address] [place] [address],[address], [place], [phone], [employer] 07/25/2025 20:14:09 08/20/2025 text/html CRC Nurse Triage Notes (Niya Faria): Reason For Request: Patient has an infection on the bottom of her Vagina, and has high blood pressure. Patient Reports: Painful urination Denies: Unable to void greater than 5 hours Erection that will not go away after 2 hours Fall or trauma that results in urinary incontinence in the setting of pain Fall or injury that results in incontinence in the absence of pain Lower back pain either unilateral or bilateral, unable to void, painful urination -hematuria Chief Complaints: High Blood Pressure, Headache, Urinary Symptoms PMH: Hypertension, Depression PMH Reviewed at 08/20/2025:41 Allergies Reviewed at 08/20/2025 13:41 Comments: Member's son is calling saying she is complaining of a possible vaginal infection and feels like her blood pressure is high. Recently in the hospital for the same reason. Increased redness and burning in her cyndy area. Member unsure if she has had a UTI before. Believes she has a yeast infection. Denies shortness of breath and chest pain. Currently does not take blood pressure medication. 54 y.o female complains of High Blood Pressure, Headache I provided information on the mobile health provider response time and advised the patient and/or caregiver to monitor reported signs and symptoms. I discussed the warning signs of when to seek emergency care. Jacy Faria RN Feed Manager Organization Information for [employer]io [facility] Legal Name: [employer]. Address: [address] [place] [id number], Coin Dealer: Xu DIEZ No.: [id number] Feed Manager POC Test Results from Shireen Helio - ALS Urine Dipstick (14:58:28) Urine leukocytes: 125LEU Urine nitrites: -NIT Urine urobilinogen: 0.2 3.5URO Urine protein: 15 0.15PRO Urine pH: 5pH Urine blood: -BLO Urine specific gravity: 1.020SG Urine ketones: 15 1.5KET Urine bilirubin: -YOSEF Urine glucose: -GLU ..................... ..................... ..................... ..................... ..................... ..................... ............... Feed Manager Note From Helio Iyer: Dispatched to the above address for a 54 y/f with Vaginal issues. Proper ppe was worn throughout the call. Upon arrival: Pt AOx4 in a fowlers position in the living room sofa. Pt greeted [facility] and gave a verbal report. Pt stated that about 2 weeks ago she was seen at [facility] for a cc of vaginal itchiness/constant [...] a couple of days everything got worse. [facility] noted that the antibiotics that pt was supposed to finish at least a week ago was mostly full (12 pills). Pt stated that she is forgetful at baseline and would forget to take antibiotics. To pt complaints pt added that she has a hx of [...] denied to sob/headaches/chest pain/abd pain/blood in urine/difficulty urinating/fever/diarr hea/constipation/fall s/. HEENT. skin in tact with no deformity. [...] - nose test normal, no neglect noted. [facility]: Gave orders for Uranalysis/urine send out. done successfully. [facility] gave pt education on finishing Antibiotics, and gave a new prescription for yeast infection (pt stated that she will pickup med). Red flags given. Prior to [facility] leave pt family found discharge paperwork, and PT was diagnosed with UTI. Family stated that they will help the pt with her medications this time. MIH clear. All times approximate. [facility] Lab Orders: culture, urine: Performed urinalysis, dipstick: Performed ..................... ..................... ..................... ..................... ..................... ..................... ............... [facility] Consulted: Imelda Tejeda ..................... ..................... ..................... ..................... ..................... ..................... ............... Disposition: Francisca Tejeda MD [address] [place] [address],[address], [place], [id number], [facility] [employer] 08/21/2025 21:41:16 OBGyn Episode No OBEpisode recorded.
[2025-10-07 13:16] LABS: MANUAL DIFF FLAG NO
[2025-10-07 13:18] LABS: Appearance Urine Clear; Glucose Urine UA Negative (Negative); PH 6.0 (5.0-9.0); Specific Gravity - Urine 1.020 (1.005-1.025); UMIC TRIGGER UACC YES
[2025-10-07 13:42] LABS: Hematocrit 45.0 % (37.0-47.0); Hemoglobin 14.5 g/dl (12.0-16.0); Imm Gran Abs Auto 0.02 X10*3/uL (0.00-0.03); Imm Gran Pct Auto 0.3 % (0.0-0.4); Lymphocytes Absolute Auto 2.3 X10*3/uL (1.2-4.9); Mean Corpuscular HGB Conc 32.2 g/dl (31.0-35.0); Mean Corpuscular Hemoglobin 28.2 pg (27.0-33.0); Mean Corpuscular Volume 87.4 fL (80.0-98.0); NRBC Abs Auto 0.000 X10*3/uL (0.0-0.012); NRBC Pct Auto 0.0 /100WBC (0.0-0.2); Platelet Count 179 X10*3/uL (160-400); Red Blood Count 5.15 X10*6/uL (4.20-5.50); White Blood Count 7.9 X10*3/uL (4.8-10.8)
[2025-10-07 13:44] LABS: UACC Culture Trigger YES
[2025-10-07 13:54] LABS: Alanine Aminotransferase 13 U/L (0-31); Albumin Level 4.3 g/dL (3.5-5.0); Alkaline Phosphatase 78 U/L (39-117); Anion Gap 11 (12-20); Aspartate Amino Transferase 21 U/L (5-31); Blood Urea Nitrogen 13 mg/dL (9-16); Calcium 9.4 mg/dL (8.4-10.2); Carbon Dioxide 27 mmol/L (22-29); Chloride 109 mmol/L (96-108); Cholesterol 192 mg/dL (<200); Estimated Glomerular Filt Rate > 60; HDL Cholesterol 52 mg/dL (>40); Magnesium 2.2 mg/dL (1.6-2.6); Potassium 4.9 mmol/L (3.3-5.1); Sodium 142 mmol/L (135-145); Total Protein 6.9 g/dL (6.5-8.0); Triglycerides 84 mg/dL (<150)
[2025-10-07 14:22] LABS: Folate 9.1 ng/mL (> or = 4.0); Vitamin B12 345 pg/mL (200-900)
[2025-10-09 04:22] LABS: HBS Num1 3.21 mIU/mL (0-7.99); HBsAGNum1 0.41 S/CO (0.00-0.99); HIV Num 1 0.06 S/CO (0.00-0.99); Hepatitis B Surface Antigen Negative (Negative); ~HepC Num1 0.12 S/CO (0.00-0.79); ~Hepatitis B Surface Antibody NONREACTIVE (Nonreactive); ~Hepatitis C Antibody Nonreactive (Nonreactive)
[2025-10-12 16:47] LABS: VITAMIN D (1,25 OH) D3 33 pg/mL; Vit D (1,25-Dihydroxy) Total 33 pg/mL (18-72); Vitamin D (1,25 OH) D2 <8 pg/mL
== END 2025-10-07 08:52 | disposition home or self-care (01) ==
LOC: HO.HKASLDS 08:51
PROVIDERS: PCP Student in an Organized Health Care Education/Training Program; Visit Provider Student in an Organized Health Care Education/Training Program
DX: I10 Essential (primary) hypertension (principal); F32.A Depression, unspecified; F41.9 Anxiety disorder, unspecified; G47.00 Insomnia, unspecified; R32 Unspecified urinary incontinence; R15.9 Full incontinence of feces; M79.604 Pain in right leg; G89.29 Other chronic pain; R26.81 Unsteadiness on feet; Z13.1 Encounter for screening for diabetes mellitus; E78.00 Pure hypercholesterolemia, unspecified
CPT/HCPCS: 36415; 80053; 80061; 81001; 82607; 82652; 82746; 83036; 83735; 84443; 85025; 86706; 86803; 87086; 87340; 87389; 96127; 99202

== ENCOUNTER 2025-10-21 12:50 | Outpatient (AMB) | payer OTHER, SELFPAY ==
--- NOTE | 2025-10-21 12:54 | MHC.PC.OV ---
Vital Signs 10/21/25 13:02 Height 5 ft 5.5 in Weight 175 lb 2 oz BMI 28.7 BP 148/88 H Blood Pressure Location Rt brachial Position Sitting Pulse 56 Pulse Source Pulse Oximeter Temp 97.4 F Temp Source Oral Pulse Oximetry (%) 97 Oxygen Delivery Method Room Air Intake Visit Reasons: 2 wk f/u Wellness Consultant Required: No Accompanied by: Spouse Allergies Penicillins Allergy (Intermediate, Verified 10/21/25 12:55) Rash Medication List - Last Reconciled 10/21/25 by Mushtaq Erickson MD blood pressure monitor As directed fluoxetine 20 mg PO DAILY [Pull-ups diapers As directed] [rollator As directed] trazodone 100 mg PO BEDTIME PRN Tobacco use date assessed: 10/21/25 Dental Screening Dental Screen Date: 10/21/25 Did you have a dental visit in the last 12 months?: No Did you have a dental problem in the last 6 months where you did not have access to dental care?: No Was dental information given to patient?: No HPI HPI Comments History of Present Illness Details History of Present Illness The patient is a 55 year old individual presenting for a review of laboratory results and management of blood pressure. Hypertension: The patient was previously on blood pressure medication but has not taken it for the last five years. The patient could not recall the name of the medication but described it as white and blue pills. Recent home blood pressure readings have been normal, around 120, and the patient reports getting nervous in the clinic. Hyperlipidemia: Recent non-fasting lab results showed an LDL cholesterol of 124. Total cholesterol, triglycerides, and good cholesterol levels were good. Medications: - Fluoxetine Social History: - Functional Status: Utilizes a Rolator for mobility assistance. Diagnostic Results: - CBC: White blood cells, red blood cells, hemoglobin, and platelets are normal. - CMP: Sodium, potassium, liver function, and kidney function are normal. - Lipid Panel: Total cholesterol and triglycerides are good; good cholesterol is good; bad cholesterol is 124 on a non-fasting sample. - Other Labs: Vitamin D, B12, folate, thyroid, urine, hepatitis B, hepatitis C, and HIV are all normal. Past Medical History - Hypertension: Previously treated with medication, which was discontinued five years ago. Health Maintenance - The patient will be scheduled for a follow-up visit in six months. - The medical administrative technician will assist the patient with the Rolator. [facility] Medical History (Updated 10/21/25 @ 13:05 by Mushtaq Erickson MD) Elevated LDL cholesterol level Elevated blood pressure reading Insomnia Anxiety Depression Gait instability Chronic pain of right lower extremity Incontinence Hypertension Family History Family/Other No problems noted. Father FH: mental illness Mother FH: mental illness Paternal Grandfather FH: mental illness Social History Housing: Apartment Alcohol intake: never Patient Tobacco Use Status: Current someday Tobacco user e-Cigarette/Vaping Use: Never Used service: No Current occupational status: disabled Cognitive needs: Yes (walker) Hearing needs: No Vision needs: Yes Questionnaire PHQ-9 Over the last 2 weeks, how often have you been bothered by any of the following problems? 1. Little interest or pleasure in doing things: not at all 2. Feeling down, depressed, or hopeless: more than half the days 3. Trouble falling or staying asleep, or sleeping too much: more than half the days 4. Feeling tired or having little energy: more than half the days 5. Poor appetite or overeating: more than half the days 6. Feeling bad about yourself - or that you are a failure or have let yourself or your family down: not at all 7. Trouble concentrating on things, such as reading the newspaper or watching television: more than half the days 8. Moving or speaking so slowly that other people could have noticed. Or the opposite - being so fidgety or restless that you have been moving around a lot more than usual: not at all 9. Thoughts that you would be better off or of hurting yourself in some way: not at all Total score: 10 Depression Screening Interpretation: Positive Depression Screening Follow-up: In treatment Depression Screening Done: Yes 10291 - PHQ-9 Billing: Yes Source: Developed by Drs. Daniel Murray, Iris Berrios, Fernando Van and colleagues, with an educational andreas from [employer]. Thrive Questionnaire Date Thrive assessed: 10/21/25 I am a: Patient What is your living situation today?: I have a steady place to live Within the past 12 months, did the food you bought not last and you didn't have the money to get more?: I choose not to answer this question Within the past 12 months, did you worry whether your food would run out before you got money to buy more?: Often true Do you have trouble paying for medicines?: Yes Do you have trouble getting transportation to medical appointments?: No Do you have trouble paying your heating and electricity bill?: No Do you have trouble taking care of your child, family member or friend?: No Are you currently unemployed and looking for a job?: No Are you interested in more education?: No Please select the resources that you would like help with: None Currently or been in a relationship where the following occur: No concerns reported THRIVE Score: 1 AUDIT C Alcohol Use Questionnaire (AUDIT-C) 1. How often do you have a drink containing alcohol?: Never Total Score: 0 ALEXEY-7 AMB Questionnaire ALEXEY-7 Date ALEXEY - 7 assessed: 10/21/25 Feeling nervous, anxious, or on edge: 2 = More than half the days Not being able to stop or control worryin = More than half the days Worrying too much about different things: 2 = More than half the days Trouble relaxin = More than half the days Being so restless that it is hard to sit still: 2 = More than half the days Becoming easily annoyed or irritable: 2 = More than half the days Feeling afraid as if something awful might happen: 2 = More than half the days Total ALEXEY-7 score (0-4 normal; 5-9 mild; 10-14 moderate; 15-21 severe): 14 Source: Developed by Drs. Daniel Murray, Iris Berrios, Fernando Van and colleagues, with an educational andreas from [employer]. ALEXEY-7 Assessment Billing ALEXEY-7 Assessment Tool: ALEXEY-7 Assessment 11341 Review of Systems Narrative Review of Systems - General: Denies any questions or concerns. - Cardiovascular: A caretaker grounds reports the patient complains when the blood pressure goes up. - Neurological: Reports feeling nervous when visiting the clinic. 10-point ROS reviewed and negative except as noted in HPI Physical exam (Primary Care) Vital Signs: Last Vital Signs Temp 97.4 F 10/21/25 13:02 Pulse 56 10/21/25 13:02 BP 170/79 H 10/21/25 13:02 Pulse Ox 97 10/21/25 13:02 Oxygen Delivery Method Room Air 10/21/25 13:02 BMI result Body Mass Index 28.7 Tobacco/Smoking Status: Tobacco use Status Tobacco use date assessed 10/21/25 10/21/25 12:56 Patient Tobacco Use Status Current someday Tobacco 10/21/25 12:56 e-Cigarette/Vaping Use Never Used 10/21/25 12:56 PHQ-9: PHQ-9 Score PHQ-9: Total score 10 10/21/25 13:05 Depression Screening Interpretation: Positive Depression Screening Follow-up: In treatment Thrive Assessment: Date of Thrive Assessment Date Thrive assessed 10/21/25 10/21/25 12:56 Currently or been in a relationship where the following occur: No concerns reported Narrative Physical Exam General: Well-appearing, in no acute distress. Vital signs: Blood pressure readings at home were good at 120. No current blood pressure medication needed based on these readings. HEENT: Normocephalic, atraumatic. PERRLA, EOMI. Conjunctiva clear, sclera anicteric. Oropharynx clear, mucous membranes moist. TMs intact bilaterally. Neck: Supple, no lymphadenopathy, no thyromegaly, no JVD or carotid bruits. Cardiovascular: RRR, normal S1/S2, no murmurs, rubs, or gallops. Peripheral pulses 2+ and symmetric. No edema. Respiratory: Lungs clear to auscultation bilaterally, no wheezes, rales, or rhonchi. Normal effort. Abdomen: Soft, non-tender, non-distended. Normoactive bowel sounds. No hepatosplenomegaly, no masses. MSK: Full range of motion, no joint swelling or deformity. Normal gait. Skin: Warm, dry, intact. No rashes, lesions, or pallor. Neuro: Alert and oriented x3. Cranial nerves II-XII intact. Strength 5/5 throughout. Sensation intact. Reflexes 2+ symmetric. Normal coordination and gait. Psych: Appropriate mood and affect. Normal judgment and insight. Office Procedures Flu Questionnaire Does the patient have a severe egg allergy?: No Does the patient have severe life threatening allergies?: No Does the patient have a fever or illness today?: No Has the patient ever had Guillain-[place] Syndrome?: No Has the patient ever had any past reaction to a flu shot?: No Coding Level of Care Code Est Pt Level 3 (83884) Diagnoses Elevated LDL cholesterol level E78.00 Urine abnormality R82.90 Additional Codes ALEXEY-7 Assessment Billing - ALEXEY-7 Assessment Tool: ALEXEY-7 Assessment 36817 ([id number]) PHQ-9 - 48739 - PHQ-9 Billing: Yes ([id number]) Assessment & Plan Assessment & Plan (1) Elevated LDL cholesterol level: Code(s): E78.00 - Pure hypercholesterolemia, unspecified Category: Medical (2) Urine abnormality: Code(s): R82.90 - Unspecified abnormal findings in urine Plan Consent Patient was informed and verbally consented to the use of an ambient scribe for clinic note documentation during this visit. Plan 1. Hypertension - Defer initiating antihypertensive medication at this time, as home blood pressure readings are normal. - Continue monitoring blood pressure at home. - The medical administrative technician will contact the patient's pharmacy, [facility], to verify any past prescriptions for blood pressure medication. 2. Hyperlipidemia - No intervention is planned for the slightly elevated LDL of 124, as the sample was non-fasting. Discussion Notes I reviewed the lab results with the patient, which were all normal except for a slightly high non-fasting bad cholesterol of 124, which I am not concerned about. We discussed the patient's blood pressure, noting that home readings appear normal, and I suspect the patient gets nervous in the clinic. I explained that I will not be prescribing any blood pressure medication at this time, as I do not think it is needed based on the home readings. I informed the patient that my medical administrative technician will call the pharmacy to verify past medication history. We agreed on a follow-up appointment in about six months, and I advised the patient to return sooner if any issues arise. Patient Instructions - All of your lab results came back normal. - We will not start any new blood pressure medication at this time. - My medical administrative technician will call your pharmacy to check on your past medications. - Please pharmacy picking tech your fluoxetine prescription. - Schedule a follow-up appointment in about six months. - If you need anything before then, please come in and see me. Medical Decision Making The 55-year-old individual presented for a review of lab results and blood pressure management. Recent lab work was reviewed and found to be unremarkable except for a non-fasting LDL of 124, which is not clinically concerning at this time. Regarding blood pressure, the patient has a history of antihypertensive medication use, last taken five years ago. Home blood pressure readings are normal, around 120, but the patient reports anxiety in the clinic setting, suggesting possible white coat hypertension. Given the normal home readings, initiating antihypertensive therapy is not warranted at this time. The plan is to continue observation and verify the patient's medication history with the pharmacy. A follow-up is scheduled in six months to re-evaluate. Total Time Statement 20 min Total time spent caring for the patient today includes pre-visit chart review, documentation, review of laboratory and diagnostic imaging results, medication reconciliation, medically necessary evaluation, counseling on diagnoses, care coordination, ordering appropriate tests and medications, review of tests performed by other providers, reporting test results to the patient, and communication with other healthcare providers. Orders: Orders Influenza [id number] Immunization Today Z23 - Encounter for immunization Medications: New [rollator] As directed 1 ea 0RF R26.81 - Unsteadiness on feet
[2025-10-21 13:02] VITALS: BP 148/88; PULSE 56; TEMP 36.3; O2SAT 97; BMI 28.7
--- OUTSIDE RECORDS SUMMARY | 2025-10-21 13:12 | XMS_ITS | Continuity of Care Document ---
Author Organization [facility], [facility] Address [address] [place] [address] Care Team Providers Care Behavior Support Specialist Name Role Phone HIM CCA OTHER Assessment Encounter Date Assessment Date Assessment LastModified by Organization Details LastModified Time 08/20/2025 08/20/2025 I have reviewed and agree with the assessment and plan as documented by the biomass plant technician. I provided real-time medical direction for this [...] We discussed the need to seek care urgently/emerge ntly in the setting of any new or worsening serious symptoms, particularly weakness, dizziness, fever, chills, CP, SOB, worsening diarrhea, nausea, vomiting or any other concerns. paysola Not available 08/20/2025 15:13:51 Plan of Treatment Reminders Order Date Submit Date Provider Last Modified By Organization Details Last Modified Time Details Appointments None recorded. Lab culture, urine 2024 025 [facility] (Centralized Electronic Ordering - All Locations), Patient Can Go To The Location Of Their Choice, [address] 06:05:42 urinalysis , dipstick 2024 025 [facility], [address] [facility], [place], [address] 21:27:48 Referral None recorded. Procedures None recorded. Surgeries None recorded. Imaging None recorded. Medication Orders Diflucan 150 mg tablet 2024 025 [id number], [address] [place], [place], [id number], 15:14:05 Patient TargetsNo targets recorded. Patient InstructionsNo instructions recorded. Reason for Referral None Reported. Results Created Date Observation Date Name Description Value Unit Range Abnormal Flag Note LastModifiedBy Organization Detail LastModifiedTime 08/20/2008/22/2025 URINE CULTU RE, UROLO GY DEBRA P urine culture, urology workup Final report abnormal Not Available [facility] ([facility]) [address] [facility], [place], [address], 08/22/2025 20:05:53 08/20/2008/22/2025 URINE CULTU RE, UROLO GY DEBRA [...] ng units per mL Not Available [facility] ([facility]) [address] [facility], [place], [address], 08/22/2025 20:05:53 08/20/2008/22/2025 URINE CULTU RE, UROLO GY DEBRA [...] thopr im/Sterling lfa R Not Available [facility] ([facility]) [address] [facility], [place], [address], 08/22/2025 20:05:53 Result Notes None recorded. Medical Equipment None Reported. Allergies Allergen ID Allergen Name Allergen Category Reaction Reaction Severity Criticality Documentation Date Start Date Code Code System Note Provider Name and Address Organization Details Recorded Time 5511 Product containin g penicilli n (product) medicatio n Not available Not available Not available 06/17/2024 41652 8001 SNOMED Not Available [facility] - production 03:47:46 Medications Name Sig Start Date Stop [...] Not Available Not Available Vitals Date Recorded Oxygen saturation Body height Respiratory rate Heart rate Body temperature Body weight Systolic And Diastolic Provider Name and Address Organization Details Last Updated DateTime 5 98 % 172.72 cm 17 /min 64 /min 98.1 [degF] 20856.8 4 g 140/72 mm[Hg] Not Available [facility] - production 5 15:09:57 Social History None recorded. Functional Status None recorded. Mental Status None recorded. Family History Nothing Reported. Medical History No medical history recorded. Gynecological HistoryNo gynecological history recorded. Obstetrics History GPAL:G 0 P 0 0 0 0 Past Encounters Encounter ID Performer Location Encounter Start Date Encounter Closed Date Diagnosis/Indication Diagnosis SNOMED-CT Code Diagnosis ICD10 Code Diagnosis IMO Codes Diagnosis Note [id number] Connie Ott MD [address] [address] 07/25/2025 18:04:12 07/26/2025 10:21:56 Essential hypertension 65779617 I10 78368 54 year old female being evaluated for [...] assessment and plan as documented by the biomass plant technician. I provided real-time medical direction for this encounter and was immediatel y available to provide additional phone-base d assistance as needed. We discussed the diagnostic uncertaint y of home visits and associated risks. We discussed the need to seek care urgently/e mergently in the setting of any new or worsening symptoms. [id number] Imelda Tejeda MD [address] [address] 08/20/2025 15:09:54 08/22/2025 23:38:43 Dysuria 26886201 R30.0 30772 Health Concerns Section Related Observation LastModified by Organization Detai ls LastModified Time None Recorded Concern Status LastModified by Organization Details LastModified Time None Recorded Payers Encounter Date Sequence Insurance Name Policy Number Policy Fontana Covered Member ID Fontana Member ID Guarantor Name 08/20/2025 1 [facility] - DOS ON OR AFTER 2023 - DUAL ELIGIBLE - DETENTION OPTIONS AND ONE CARE (MEDICARE REPLACEMENT/ADV ANTAGE - HMO) Kelin Plasencia [id number] Kelin Plasencia Notes Date Note Type Note Provider Name and Address Organization Details Recorded Time 08/20/2025 text/html CRC Nurse Triage Notes (Niya [...] Reviewed at 08/20/2025:41 Allergies Reviewed at 08/20/2025 - 13:41 Comments: Member's son is calling saying [...] to seek emergency care. Jacy Faria RN Statistical Modeler Organization Information for [facility] [employer] Legal Name: [employer]. Address: [address] [place] [address], Metal Plater: Xu Baird MD CLIA No.: [id number] Statistical Modeler POC Test Results from Gavril[facility]io singh Alexei [place] Urine Dipstick (14:58:28) Urine leukocytes: 125LEU Urine nitrites: -NIT Urine urobilinogen: 0.2 3.5URO Urine protein: 15 0.15PRO Urine pH: 5pH Urine blood: -BLO Urine specific gravity: 1.020SG Urine ketones: 15 1.5KET Urine bilirubin: -YOSEF Urine glucose: -GLU ................... ................... ................... ................... ................... ................... ................... ........ Statistical Modeler Note From Helio Iyer: Dispatched to the above address for a 54 y/f with Vaginal issues. Proper ppe was worn throughout the call. Upon arrival: Pt AOx4 in a fowlers position in the living room sofa. Pt greeted [facility] and gave a verbal report. Pt stated that about 2 weeks ago she was seen at [facility] for a cc of vaginal itchiness/constant [...] a couple of days everything got worse. [facility] noted that the antibiotics that pt was [...] denied to sob/headaches/chest pain/abd pain/blood in urine/difficulty urinating/fever/beka rrhea/constipation/ falls/. HEENT. skin in tact with no deformity. [...] - nose test normal, no neglect noted. [facility]: Gave orders for Uranalysis/urine send out. done successfully. [facility] gave pt education on finishing Antibiotics, and gave a new prescription for yeast infection (pt stated that she will pickup med). Red flags given. Prior to [facility] leave pt family found discharge paperwork, and PT was diagnosed with UTI. Family stated that they will help the pt with her medications this time. MIH clear. All times approximate. [facility] Orders: culture, urine: Performed urinalysis, dipstick: Performed ................... ................... ................... ................... ................... ................... ................... ........ [facility] Consulted: Imelda Tejeda ................... ................... ................... ................... ................... ................... ................... ........ Disposition: Fulfilled Imelda Tejeda MD [address] [place] [address],[address], [place], [address], TICO - REBECCA HIDALGO 08/21/2025 21:41:16 OBGyn Episode No OBEpisode recorded.
--- OUTSIDE RECORDS SUMMARY | 2025-10-21 13:12 | XMS_ITS | Patient Health Record ---
Author Organization [facility] Address [address] [place] [address] Care Team Providers Care Snow Shoveler Name Role Phone RK HARPER Unavailable [phone] Allergies Allergen (clinical drug ingredient) Drug/Non Drug [...] Insured Coverage Start Date Coverage End Date [facility] [address] [place] [address] [id number] MALCOLM WARE Self - patient is the [...]
--- OUTSIDE RECORDS SUMMARY | 2025-10-21 13:12 | XMS_ITS | Clinical Summary ---
Author Organization [facility] [address] [facility] Address [address] [place] [address] Phone Care Team Providers Care Remote Sensing Program Manager Name Role Phone Physician, No Pcp Primary [...] EDT - 07/23/2025 5:00 PM EDT Emergency [facility] Emergency [address] [place] [address] Eddie Meredith MD Anxiety (Primary [...] mmol/L LAB CHEMISTRY METHOD 06/24/2025 1:26 PM [facility] Potassium 4.0 3.5 - 5.5 mmol/L LAB CHEMISTRY METHOD 06/24/2025 1:26 PM [facility] Chloride 111(H) 96 - 110 mmol/L LAB CHEMISTRY METHOD 06/24/2025 1:26 PM [facility] CO2 25 21 - 32 mmol/L LAB CHEMISTRY METHOD 06/24/2025 1:26 PM [facility] Anion Gap 4 3 - 11 LAB CHEMISTRY METHOD 06/24/2025 1:26 PM [facility] Glucose 95 70 - 100 mg/dL LAB CHEMISTRY METHOD 06/24/2025 1:26 PM [facility] BUN 17 5 - 25 mg/dL LAB CHEMISTRY METHOD 06/24/2025 1:26 PM [facility] Creatinine 0.69 0.50 - 1.10 mg/dL LAB CHEMISTRY METHOD 06/24/2025 1:26 PM [facility] eGFR 102 >=60 mL/min/1. 73m2 LAB CHEMISTRY METHOD 06/24/2025 1:26 PM [facility] Comment:Calculation based on the Chronic Kidney Disease Epidemiology Collaboration (CKD-EPI) equation refit without adjustment for race. BUN/Creatinine Ratio 24.6 LAB CHEMISTRY METHOD 06/24/2025 1:26 PM EDT [facility] Calcium 9.4 8.5 - 10.5 mg/dL LAB CHEMISTRY METHOD 06/24/2025 1:26 PM EDT [facility] Blood Venous blood specimen / Unknown Venipuncture / Unknown 06/24/2025 11:58 AM EDT 06/24/2025 12:32 PM EDT us Orlando Huerta MD LAB BLOOD ORDERABLES Final Result [facility]) [facility] [address] [place] [address], * ANGELITA SCREENING DIGITAL (07/05/2019 5:48 PM EDT) Anatomical Region Laterality Modality Mammography 07/05/2019 1:05 PM EDT Narrative 07/05/2019 5:48 PM EDT [facility] Diagnostic Imaging Department [address] [place] [address] Patient: KELIN WARE./Age/Sex: 1970 - 48 - F Unit#: [id number] Location/Status: SPDIMAM/REG CLI Mnemonic/Ordering Site: [facility] Ordering Physician: KEYON CARTER MD Angelita Screening Digital - 07/05/19 - 1327 History: Bilateral breast cancer screening. Technique: Digital mammography. Conventional CC and MLO projections with tomosynthesis MLO views and computer aided detection. Comparison made with previous mammograms from [facility] and outside mammography 06/29/2018 dating back to [...] malignancy. BIRADS category 2; benign findings, 3342F 89012, 17932 A negative mammogram in the face of a clinically suspicious abnormality does not exclude the possibility of malignancy nor alter the indications for biopsy. Note: Patient information entered into a reminder system with a target due date for the next mammogram; PQRI II 7088F Dictating Physician: LD BENNETT MD Electronically Signed by: LD BENNETT MD Dic Date/Time: 07/05/191746 Sign date/Time: 07/05/191747 Procedure Note Ld Bennett - 11/20/2022 [facility] Diagnostic Imaging Department [address] [place] [address] Patient: WAREKELIN CATES Dasha /Age/Sex: 1970 - 48 - F Unit#: [id number] [facility] Ordering Physician: KEYON CARTER MD Angelita Screening Digital - 07/05/19 - 1327 History: Bilateral breast cancer screening. Technique: Digital mammography. Conventional CC and MLO projections with tomosynthesis MLO views and computer aided detection. [facility] dating back to 01/03/2009. Findings: Breast tissue consists of a heterogenous combination of fattyand fibroglandular tissue, potentially obscuring small lesions, category cdensity. There are benign calcifications and stable tissue asymmetries bilaterally.No suspicious group of microcalcification, suspicious mass, concerningfocal asymmetry, architectural distortion or concerning change in breastdensity affecting either breast. Impression: No evidence of malignancy. BIRADS category 2; benign findings, 3342F 65294, 43519 A negative mammogram in the face of [...] Most Recently Relevant to Health Maintenance Insurance [facility] MEDIC[facility] Member Subscriber Plan / Payer (Ef fective 2022-Present) Name:KELIN WARE Relation to Subscriber:Self Name:Kelin Ware Payer ID:[id number] Group ID:[id number] Type:Not on file Address: [place] [address] [place] [address] Care Teams Remote Sensing Program Manager Relationship Specialty Start Date End Date Physician, No Pcp PCP - General 06/24/25
--- OUTSIDE RECORDS SUMMARY | 2025-10-21 13:12 | XMS_ITS | Continuity of Care Document ---
Author Organization [facility] [facility], [facility] Address [address] [place] [address] Care Team Providers Care General Intern Name Role Phone HIM CCA OTHER Assessment No assessment recorded. Plan of Treatment Reminders Order Date Submit Date Provider Last Modified By Organization Details Last Modified Time Details Appointments None record ed. Lab None record ed. Referral None record ed. Procedures None record ed. Surgeries None record ed. Imaging None record ed. Medication Orders None record ed. Patient TargetsNo targets recorded. Patient InstructionsNo instructions recorded. Reason for Referral None Reported. Medical Equipment None Reported. Allergies Allergen ID Allergen Name Allergen Category Reaction Reaction Severity Criticality Documentation Date Start Date Code Code System Note Provider Name and Address Organization Details Recorded Time 5511 Product containin g penicilli n (product) medicatio n Not available Not available Not available 06/17/2024 75355 8001 SNOMED Not Available [facility] - production 4 03:47:46 Medications Name Sig Start Date [...] Not Available Not Available Vitals Date Recorded Heart rate Respiratory rate Body temperature Oxygen saturation Systolic And Diastolic Provider Name and Address Organization Details Last Updated DateTime 5 72 /min 16 /min 98.2 [degF] 98 % 144/88 mm[Hg] Not Available [facility] - production 5 18:04:16 Social History None recorded. Functional Status None recorded. Mental Status None recorded. Family History Nothing Reported. Medical History No medical history recorded. Gynecological HistoryNo gynecological history recorded. Obstetrics History GPAL:G 0 P 0 0 0 0 Past Encounters Encounter ID Performer Location Encounter Start Date Encounter Closed Date Diagnosis/Indication Diagnosis SNOMED-CT Code Diagnosis ICD10 Code Diagnosis IMO Codes Diagnosis Note [id number] Connie Ott MD [facility] [address] [place] [address] 07/25/2025 18:04:12 07/26/2025 10:21:56 Essential hypertension [id number] I10 51364 54 year old female being evaluated for [...] assessment and plan as documented by the leather goods assembler. I provided real-time medical direction for this encounter and was immediatel y available to provide additional phone-base d assistance as needed. We discussed the diagnostic uncertaint y of home visits and associated risks. We discussed the need to seek care urgently/e mergently in the setting of any new or worsening symptoms. Health Concerns Section Related Observation LastModified by Organization Detai ls LastModified Time None Recorded Concern Status LastModified by Organization Details LastModified Time None Recorded Payers Encounter Date Sequence Insurance Name Policy Number Policy Fontana Covered Member ID Fontana Member ID Guarantor Name 07/25/2025 1 [facility] - DOS ON OR AFTER 2023 - DUAL ELIGIBLE - LONG-TERM OPTIONS AND ONE CARE (MEDICARE REPLACEMENT/ADV ANTAGE - HMO) Kelin Plasencia [id number] Kelin Plasencia Notes Date Note Type Note Provider Name and Address Organization Details Recorded Time 07/25/2025 text/html HPI: Call transferred to CRU from Ghulam IKNCAID. Mbr reports she went to the ER [...] currently at therapist appt. Mbr reported to [facility] she is scared of passing out again. Mbr denies dizziness/lightheaded ness at time of call. Mbr was offered [facility] for evaluation today. Mbr in agreement. Mbr request CCA assistance, states no one is helping her, requested BP monitor, BP medications, and pull-ups. Mbr was encouraged to call PCP offices and take soonest offered new patient appt, even if months away. This writer editor stressed the importance of mbr establishing care [...] Pressure PMH: Hypertension, Depression PMH Reviewed at 07/25/2025: Allergies Reviewed at 07/25/2025:06 Comments: HPI reviewed ..................... ..................... ..................... ..................... ..................... ..................... ............... Licensing Worker Note From Carmine Willett: GEN: Well appearing, [...] advised to secure a pcp for further snf care. Pt without complaints at time of visit, vitals unremarkable for emergent intervention. [facility] contacted and no further interventions required at time of visit. Pt educated to track BPs and secure a pcp appointment even if it is months away and was advised when to seek urgent/emergent care for new or worsening sxs. ..................... ..................... ..................... ..................... ..................... ..................... ............... [facility] Consulted: Connie Ott ..................... ..................... ..................... ..................... ..................... ..................... ............... Disposition: Fulfilled Connie Ott MD [address] [facility] [facility], [place], [address], [employer] SayahREBECCA 07/25/2025 20:14:09 OBGyn Episode No OBEpisode recorded.
--- OUTSIDE RECORDS SUMMARY | 2025-10-21 13:12 | XMS_ITS | Data Portability ---
Author Organization [employer] [facility], [facility] [employer] [facility] Address [address] [place] [address] Care Team Providers Care Trimmer Sorter Name Role Phone HIM CCA OTHER Assessment Encounter Date Assessment Date Assessment LastModified by Organization Details LastModified Time 05/16/2024 05/16/2024 I provided real -time medical direction via phone for this encounter and was available for additional phone-based assistance as needed. I have reviewed and agree with the Assessment and Plan as documented by the Product Safety Test Engineer. Patient given the opportunity to ask questions. Our service contacted for an assessment of: rash As per above, patient with rash under breasts that has been worsening over the course of a week. Is painful. Has ot put anything on it. Per client support consultant on the scene, VSS, see uploaded pictures. [...] particularly fever chills lightheadedness altered mental status [email or web address] Not available 05/17/2024 07:19:35 06/20/2025 06/20/2025 Findings [...] Assessment and Plan as documented by the Product Safety Test Engineer. We discussed the diagnostic uncertainty of home [...] assessment and plan as documented by the client support consultant. I provided real-time medical direction for this [...] None recorded. Lab culture, urine 2024 025 [place] [facility] (Centralized Electronic Ordering - All Locations), Patient Can Go To The Location Of Their Choice, [id number] 06:05:42 urinalysis, dipstick 2024 025 [facility], [address] [place] [address], [id number] 5 21:27:48 Referral None recorded. Procedures None recorded. Surgeries None recorded. Imaging None recorded. Medication Orders Diflucan 150 mg tablet 2024 025 [facility][id number], [address], [place], [id number], 5 15:14:05 clotrimazol e-betametha sone 1 %-0.05 % topical cream 2024 025 [facility] #[id number], [address], [place], [id number], 5 17:33:34 nystatin 100,000 unit/gram topical powder 2023 024 [facility] #93764, [address], [place], [id number], 4 15:35:51 ketoconazol e 2 % topical cream 2023 024 [facility] #[id number], [address], [place], [id number], 4 15:35:56 ketoconazol e 2 % topical cream 2023 024 [facility] #65727, [address], [place], [id number], 4 07:18:04 Patient TargetsNo targets recorded. Patient InstructionsNo instructions recorded. Reason for Referral None Reported. Results Created Date Observation Date Name Description Value Unit Range Abnormal Flag Note LastModifiedBy Organization Detail LastModifiedTime 08/20/2008/22/2025 URINE CULTU RE, UROLO GY DEBRA P urine culture, urology workup Final report abnormal Not Available [facility] ([facility]) [address] [facility], [place], [address], 08/22/2025 20:05:53 08/20/20 25 08/22/2025 URINE CULTU [...] ng units per mL Not Available [facility] ([facility]) [address] [facility], [place], [address], 08/22/2025 20:05:53 08/20/20 25 08/22/2025 URINE CULTU [...] thopr im/Sterling lfa R Not Available [facility] ([facility]) [address] [facility], [place], [address], 08/22/2025 20:05:53 Result Notes None recorded. Medical Equipment None Reported. Allergies Allergen ID Allergen Name Allergen Category Reaction Reaction Severity Criticality Documentation Date Start Date Code Code System Note Provider Name and Address Organization Details Recorded Time 0074 Product containin g penicilli n (product) medicatio n Not available Not available Not available 06/17/2024 62765 8001 SNOMED Not Available [facility] 4 03:47:46 Medications Name Sig Start Date [...] Recorded Body temperature Respiratory rate Oxygen saturation Heart rate Systolic And Diastolic Provider Name and Address Organization Details Last Updated DateTime 4 98.4 [degF] 16 /min 94 % 65 /min 109/66 mm[Hg] Not Available [facility] 4 07:16:18 Date Recorded Oxygen saturation Heart rate Respiratory rate Body temperature Body weight Systolic And Diastolic Provider Name and Address Organization Details Last Updated DateTime 4 97 % 64 /min 16 /min 97.6 [degF] 92792.9 2 g 110/56 mm[Hg] Not Available [facility] 4 15:33:40 Date Recorded Oxygen saturation Body height Respiratory rate Heart rate Body temperature Body weight Systolic And Diastolic Provider Name and Address Organization Details Last Updated DateTime 5 98 % 167.64 cm 20 /min 59 /min 98.3 [degF] 14548.6 8 g 183/79 mm[Hg] Not Available [facility] - production 17:29:05 Date Recorded Heart rate Respiratory rate Body temperature Oxygen saturation Systolic And Diastolic Provider Name and Address Organization Details Last Updated DateTime 5 72 /min 16 /min 98.2 [degF] 98 % 144/88 mm[Hg] Not Available [facility] - production 18:04:16 Date Recorded Oxygen saturation Body height Respiratory rate Heart rate Body temperature Body weight Systolic And Diastolic Provider Name and Address Organization Details Last Updated DateTime 5 98 % 172.72 cm 17 /min 64 /min 98.1 [degF] 29001.8 4 g 140/72 mm[Hg] Not Available [facility] - production 15:09:57 Social History None recorded. Functional Status None recorded. Mental Status None recorded. Family History Nothing Reported. Medical History No medical history recorded. Gynecological HistoryNo gynecological history recorded. Obstetrics History GPAL:G 0 P 0 0 0 0 Past Encounters Encounter ID Performer Location Encounter Start Date Encounter Closed Date Diagnosis/Indication Diagnosis SNOMED-CT Code Diagnosis ICD10 Code Diagnosis IMO Codes Diagnosis Note [id number] Gabriela Elizabeth MD Main - [facility] [address] [place] [phone] 05/17/2024 07:16:06 05/17/2024 11:45:33 Candidal intertrigo 092426522 B37.2 [id number] [facility] [address] [place] [phone] 06/17/2024 15:33:28 06/18/2024 10:16:48 Candidal intertrigo [id number] B37.2 As noted, we were called to see this patient regarding concerns of rash. Evaluation in the field was performed by my client support consultant colleague, as noted above, I provided real-time [...] thirst, increased urination or any other concerns. [id number] RANJIT HEALY MD [facility] [address] [address] 06/20/2025 17:28:50 06/20/2025 21:52:33 Intertrigo 14271923 L30.4 [id number] Connie Ott MD [facility] [address] [phone] 07/25/2025 18:04:12 07/26/2025 10:21:56 Essential hypertension [id number] I10 11455 54 year old female being evaluated for [...] assessment and plan as documented by the client support consultant. I provided real-time medical direction for this encounter and was immediatel y available to provide additional phone-base d assistance as needed. We discussed the diagnostic uncertaint y of home visits and associated risks. We discussed the need to seek care urgently/e mergently in the setting of any new or worsening symptoms. [id number] Imelda Tejeda MD [facility] [address] [place] [address] 08/20/2025 15:09:54 08/22/2025 23:38:43 Dysuria 28218421 R30.0 37602 Health Concerns Section Related Observation LastModified by Organization Detai ls LastModified Time None Recorded Concern Status LastModified by Organization Details LastModified Time None Recorded Advance Directives Directive None Recorded Payers Insurance Date Sequence Insurance Name Policy Number Policy Fontana Covered Member ID Fontana Member ID Guarantor Name 08/20/2025 1 [facility] - DOS ON OR AFTER 2023 - DUAL ELIGIBLE - ALF OPTIONS AND ONE CARE (MEDICARE REPLACEMENT/ADV ANTAGE - HMO) Kelin Plasencia [id number] Kelin Luis Angel Notes Date Note Type Note Provider Name [...] ..................... ..................... ..................... ..................... ..................... ..................... ............... Product Safety Test Engineer Note From Roman Romero: [id number] dispatched to a [facility] yellow in [place] for a 53yoF w c/c of rash [...] Area is photographed. Assessment findings shared w [facility] and care plan discussed. Prescriptions for several topical medications called into local pharmacy.Supportive care measures and red flag symptoms reviewed. End of report. - Product Safety Test Engineer Allergies: Penicillin ..................... ..................... ..................... ..................... ..................... ..................... ............... Disposition: Fulfilled Gabriela Elizabeth MD [address] [place] [address],[address], [place], [address], [employer] 05/17/2024 07:19:52 06/17/2024 text/html ROS as noted in the [facility] Nurse Triage Notes (Charlee Bro): Reason For Request: Rash under both breast Chief Complaints: Rash PMH: Hypertension Allergies: Penicillin Comments: Patient reports rash under both breasts. Patient was using a cream at [facility] that she doesn't remember the name of. Cream was helping in the past. Patient states rash is recurrent with the humidity. ..................... ..................... ..................... ..................... ..................... ..................... ............... Product Safety Test Engineer Note From Srinivas Watts: Pt co rash under breasts. Pt has had before and cream she was given worked well. Pt denies fever , contact with poisonous plants , or insects. Denies NVD , edema. Baseline vitals assessed. Photos uploaded. Afebrile. C contacted and RX for antibiotic cream, and nystatin powder. Pt instructed how to apply , pt advised to follow up with pcp. Pt education on signs indicating the ER. Product Safety Test Engineer Allergies: Penicillin ..................... ..................... ..................... ..................... ..................... ..................... ............... Disposition: [facility] ARLENE MENDOZA MD [address] [place] [address],[address], [place], [phone], [facility] [employer] 06/17/2024 19:06:08 06/20/2025 text/html ROS as noted [...] Rash PMH: Hypertension, Depression PMH Reviewed at 06/20/2025 - 09:29 Allergies Reviewed at 06/20/2025 - 09:29 Comments: 54 y.o female complains of Rash [...] ..................... ..................... ..................... ..................... ..................... ..................... ............... Product Safety Test Engineer Note From Xander Reyes: Pt chief complaint [...] CAOX4 with a GCS of 15 currently. [facility] Ranjit healy consulted. Pt is informed of [...] ..................... ..................... ..................... ..................... ..................... ..................... ............... [facility] Consulted: Ranjit Healy ..................... ..................... ..................... ..................... ..................... ..................... ............... Disposition: Fulfilled RANJIT HEALY MD [address] [place] [address],[address], [place], [address], [employer] 06/20/2025 21:32:16 07/25/2025 text/html HPI: Call transferred to CRU from Ghulam KINCAID. Mbr reports she went to the ER on Friday (07/23) for syncope and per mbr my blood pressure was 280 while in the ED. r states she was given medication for her BP and d/c to home without script. Ryan does not have a current PCP, states she is trying to get in but wait times are 2-3 months. Mbr denies current s/sx including CP, SOB, dizziness, numbness/tingling, blurry vision. Demetrir does not have a BP monitor or [...] patient appt, even if months away. This real estate underwriter stressed the importance of mbr establishing care w/ a PCP. Mbr was advised msg would be sent to CP for follow-up. Mbr was advised an [facility] referral would be submitted and for new/worsening sx prior to visit, to call 911/go to the ER. ..................... ..................... ..................... ..................... ..................... ..................... ............... [facility] Nurse Triage Notes (Charlee Bro): Chief Complaints: High Blood Pressure PMH: Hypertension, Depression PMH Reviewed at 07/25/2025 - 14:06 Allergies Reviewed at 07/25/2025 - 14:06 Comments: HPI reviewed ..................... ..................... ..................... ..................... ..................... ..................... ............... Product Safety Test Engineer Note From Carmine Willett: GEN: Well appearing, [...] advised to secure a pcp for further nursing home care. Pt without complaints at time of visit, vitals unremarkable for emergent intervention. [facility] contacted and no further interventions required at time of visit. Pt educated to track BPs and secure a pcp appointment even if it is months away and was advised when to seek urgent/emergent care for new or worsening sxs. ..................... ..................... ..................... ..................... ..................... ..................... ............... [facility] Consulted: Connie Ott ..................... ..................... ..................... ..................... ..................... ..................... ............... Disposition: Fulfilled Connie Ott MD [address] [facility],[address], [place], [address], [employer] 07/25/2025 20:14:09 08/20/2025 text/html CRC Nurse Triage [...] to seek emergency care. Jacy Faria RN Product Safety Test Engineer Organization Information for [employer] Name: [employer]. Address: [address] [place] [address], Sound Truck Operator: Xu Baird MD CLIA No.: [id number] Product Safety Test Engineer POC Test Results from Helio Iyer ONDINA Urine Dipstick (14:58:28) Urine leukocytes: 125LEU Urine nitrites: -NIT Urine urobilinogen: 0.2 3.5URO Urine protein: 15 0.15PRO Urine pH: 5pH Urine blood: -BLO Urine specific gravity: 1.020SG Urine ketones: 15 1.5KET Urine bilirubin: -YOSEF Urine glucose: -GLU ..................... ..................... ..................... ..................... ..................... ..................... ............... Product Safety Test Engineer Note From Helio Iyer: Dispatched to the above address for a 54 y/f with Vaginal issues. Proper ppe was worn throughout the call. Upon arrival: Pt AOx4 in a fowlers position in the living room sofa. Pt greeted [facility] and gave a verbal report. Pt stated that about 2 weeks ago she was seen at [facility] for a cc of vaginal itchiness/constant [...] a couple of days everything got worse. [facility] noted that the antibiotics that pt [...] - nose test normal, no neglect noted. [facility]: Gave orders for Uranalysis/urine send out. done successfully. [facility] gave pt education on finishing Antibiotics, and gave a new prescription for yeast infection (pt stated that she will pickup med). Red flags given. Prior to [facility] leave pt family found discharge paperwork, and PT was diagnosed with UTI. Family stated that they will help the pt with her medications this time. MIH clear. All times approximate. [facility] Lab Orders: culture, urine: Performed urinalysis, dipstick: Performed ..................... ..................... ..................... ..................... ..................... ..................... ............... [facility] Consulted: Imelda Tejeda ..................... ..................... ..................... ..................... ..................... ..................... ............... Disposition: Fulfilled Imelda Tejeda MD [address] [place] [address],[address], [place], [phone], REBECCA JEFFREY 08/21/2025 21:41:16 OBGyn Episode No OBEpisode recorded.
== END 2025-10-21 13:17 | disposition home or self-care (01) ==
LOC: HO.HMCFMS 12:51
PROVIDERS: Visit Provider Student in an Organized Health Care Education/Training Program
DX: E78.00 Pure hypercholesterolemia, unspecified (principal); R82.90 Unspecified abnormal findings in urine; Z23 Encounter for immunization

== ENCOUNTER → 2025-10-21 12:50 | Outpatient (BNVA) | payer OTHER, SELFPAY | PROVIDERS: Visit Provider Student in an Organized Health Care Education/Training Program | DX: E78.00 Pure hypercholesterolemia, unspecified (principal); R82.90 Unspecified abnormal findings in urine; Z13.31 Encounter for screening for depression; Z13.39 Encounter for screening examination for other mental health and behavioral disorders | CPT/HCPCS: 90471; 96127; 99212 ==